=== PATIENT | female | born 1950 | race Caucasian/White ===

== ENCOUNTER 2018-08-13 13:14 | Observation (INO) ==
[2018-08-13] MEDS ORDERED: *HR* Morphine Immed Rel 15 MG TABLET PO STA (13:53)
--- NOTE | 2018-08-13 13:56 | Emergency Department Note ---
Disposition Clinical Impression: Chest pain Qualifiers: Chest pain type: unspecified Qualified Code(s): R07.9 - Chest pain, unspecified DVT (deep venous thrombosis) Qualifiers: DVT location: lower extremity Affected thrombotic vein of extremity: unspecified lower extremity distal vein Chronicity: acute Laterality: left Qualified Code(s): I82.4Z2 - Acute embolism and thrombosis of unspecified deep veins of left distal lower extremity Disposition: Admitted As Inpatient Condition: Fair Time of Disposition: 16:30 General Adult HPI - General Chief complaint: ED Chest Pain Stated complaint: CP/LLE swelling Time Seen by Provider: 08/13/18 13:28 Source: patient Mode of arrival: ambulatory Limitations: no limitations Nursing Notes Reviewed: Yes Vital Signs Reviewed: Yes - History of Present Illness HPI Narrative: 68-year-old female without significant past medical history of presenting for one day of left lower sternal any pain, swelling, tightness, chest pain or shortness of breath. Patient states that she is currently not experiencing the chest pain or shortness of breath which she believes was consistent with her previous anxiety and panic attacks, however she is still complaining of significant and severe left lower extremity pain. The lower extremity is significantly swollen in comparison to the right lower extremity. The patient denies any recent immobilization, cancer, surgeries, hemoptysis, or any other concerning findings for DVT/PE, no history of prior. Patient has no other concerns or complaints at this time. Radiation: extremity Pain Severity: severe Pain Scale: 8 Associated symptoms: Reports: chest pain, shortness of breath - Related Data Home Medications Medication Instructions Recorded Confirmed Cyanocobalamin (Vitamin B-12) 1,000 mcg IM QMONTH 01/08/16 08/13/18 [Vitamin B-12] Ferrous Sulfate [Iron] 325 mg PO TID 01/08/16 08/13/18 Furosemide [Lasix] 20 mg PO AD 01/08/16 08/13/18 Gabapentin [Neurontin] 300 mg PO AD 01/08/16 08/13/18 Tizanidine HCl [Zanaflex] 2 tab PO HS 01/08/16 08/13/18 Cymbalta 09/30/17 Diltiazem 09/30/17 Previous Rx's Medication Instructions Recorded Magnesium Oxide [Mgo] 1 tab PO DAILY #30 tablet 01/08/16 Cholecalciferol (Vitamin D3) 1 tab PO QWEEK #14 tab 02/21/16 [Dialyvite Vitamin D3 Max] Folic Acid 1 tab PO DAILY #30 tablet 02/21/16 Naproxen [EC-Naprosyn] 500 mg PO BID 10 Days #20 tablet. 09/30/17 Allergies Allergy/AdvReac Type Severity Reaction Status Date / Time Sulfa (Sulfonamide Allergy Hives Verified 08/13/18 13:22 Antibiotics) Review of Systems: *See History of Present Illness for more detail Constitutional: Denies: fever, chills Cardiovascular: Admits chest pain Respiratory: Admits dyspnea denies: Cough, hemoptysis Gastrointestinal: Denies: abdominal pain, nausea, vomiting, diarrhea, constipation, hematemesis, melena, hematochezia Genitourinary: Denies: hematuria Musculoskeletal: Admits to left lower extremity pain and swelling Denies: back pain, neck pain Neurological: Denies: headache, weakness, lightheadedness/dizziness, numbness, paresthesias, difficulty with ambulation. Endocrine: Denies: fatigue All systems ED: reviewed and negative except as stated. 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 Anterior neck is supple without swelling. *Chest: Symmetric chest wall rise *Heart: Cardiac rhythm and rate are regular with S1 and S2 , no S3 or S4 appreciated, no murmurs, gallops, rubs, or clicks. *Lungs: Lungs are clear to auscultation bilaterally, without accessory muscle use or prolonged expiratory phase. No wheezes, rhonchi or stridor appreciated. Abdomen: Abdomen is flat, soft to palpation, normal bowel sounds. No abdominal bruit auscultated. Non-distended, non-rigid, no organomegaly, no ascites appreciated. No pulsatile mass, no tenderness or guarding to palpation in all four quadrants, no rebound Extremities: Patient's left lower extremities appear swollen, there is calf tenderness to palpation, concern for DVT in the left lower STEMI. Psychiatric exam: Patient displays a normal affect and mood for the environment. No overt signs of hallucination. Integumentary: warm, dry, intact, normal color. No rash, cyanosis, diaphoresis, erythema, or pallor - General Limitations: no limitations General appearance: alert, in no apparent distress Course Course Narrative: Differential diagnosis includes but is not limited to: Pulmonary embolism, deep venous thrombosis Myocardial ischemia Evaluations. Troponin, d-dimer, EKG/old EKG, chest x-ray Treatments immediately release morphine for management of patient pain. Patient verbalizes understanding agreement this plan. - Reevaluation(s) Reevaluation #1: Patient states she is having worsening chest pain, We will order second EKG at this time. Vitals remained hemodynamically stable. Vital Signs Temperature 98 F 08/13/18 13:18 Pulse Rate 96 08/13/18 13:18 Respiratory Rate 16 08/13/18 13:18 Blood Pressure 138/80 08/13/18 13:18 O2 Sat by Pulse Oximetry 94 08/13/18 13:18 Temperature 98 F 08/13/18 13:18 Pulse Rate 85 08/13/18 16:39 Respiratory Rate 17 08/13/18 16:39 Blood Pressure 123/70 08/13/18 16:39 O2 Sat by Pulse Oximetry 99 08/13/18 16:39 Oxygen Delivery Oxygen Delivery Room Air Medical Decision Making - [facility] Narrative Medical decision making narrative: Patient elevated d-dimer, positive left peroneal DVT We will perform a CTA of the chest Patient will be admitted for first time DVT Start patient on heparin here in the ED Patient informed and verbalizes understanding and agreement with this plan. Chest X-Ray 08/13/18 13:28 IMPRESSION: No acute cardiopulmonary process. D/ / Jorge Cain MD / Jorge Cain MD Interpreting Provider: Jorge Cain MD 1448 hrs.: Chest x-ray is negative. D-dimer is elevated troponins negative. We will order a scan of her leg and her chest and then wait for the rest her labs and determine if she has any thromboembolism. She may need admission. 1532 hrs.: She does have a DVT. Were not started on heparin. Her creatinine is elevated and so we will hold off on scanning her chest; we are starting her on heparin and we will bring her into the hospital. Waiting on CBC she is in agreement with plan. 1615 hrs.: Started her on heparin patient started have some chest pain before heparin was started. Repeating an EKG. Going to hold off on CT due to her creatinine being elevated we will get a VQ scan. Her something for pain and then reassess. She has been accepted to hospitalist. We will update them also. 1628 hrs.: Patient's pain last about 10 minutes and went away without any medications, repeat EKG is negative. She is getting loaded with heparin hospitalist Has accepted and she will get VQ scan on on admission. She is in agreement with plan. I reviewed the residents documentation and agree with the residents assessment and plan of care. I have personally had face to face time with the patient. (Brief History, Brief Exam, and MDM) I personally supervised and was present for the salcido/critical portions of the following procedures completed by the resident: (add procedures performed here). EKG read and interpreted by Dr. Mick Bermudez under my supervision, I agree with his interpretation. - Lab Data Lab results reviewed: Yes I reviewed the patient's lab results. Result diagrams: 08/13/18 16:28 08/13/18 14:06 Lab Results 08/13/18 08/13/18 08/13/18 Range/Units 14:06 14:06 16:28 WBC 7.3 (4.3-11.1) K/mcL RBC 3.82 (3.82-4.97) M/mcL Hgb 10.8 L (11.5-15.4) g/dL Hct 34.9 L (35.3-44.9) % MCV 91.4 (83.0-100.0) fL MCH 28.3 (28.0-33.3) pg MCHC 30.9 L (31.6-35.5) g/dL RDW 14.6 H (11.5-14.5) % Plt Count 205 (140-400) K/mcL MPV 11.8 (9.4-12.4) fL D-Dimer 2278 H (0-500) ng/mLFEU Sodium 138 (136-145) mEq/L Potassium 4.7 (3.5-5.1) mEq/L Chloride 105 (98-107) mEq/L Carbon Dioxide 26 (23-29) mEq/L BUN 20 (8-23) mg/dL Creatinine 1.33 H (0.60-1.20) mg/dL Est GFR ( Amer) 48 L (> 60) Est GFR (Non-Af Amer) 40 L (> 60) BUN/Creatinine Ratio 15 (6-26) Glucose 78 (70-105) mg/dL Calculated Osmolality 287 (280-300) Calcium 9.2 (8.6-10.3) mg/dL Troponin I < 0.03 (< 0.04) ng/mL - Radiology Data Radiology results reviewed: Yes I reviewed the patient's radiology results. Chest X-Ray 08/13/18 13:28 IMPRESSION: No acute cardiopulmonary process. D/ / Jorge Cain MD / Jorge Cain MD Interpreting Provider: Jorge Cain MD - EKG Data EKG #1 EKG attestation: Yes I reviewed and interpreted this EKG. EKG results narrative: Patient EKG shows a sinus rhythm with a heart rate of 83 bpm, MN interval of 157 ms, QRS duration of 103 ms, QT/QTc interval of 376/440 ms respectively. There are no significant ST segment elevations, depressions, pathologic Q waves, abnormal T-wave inversions, nor any other signs of acute ischemic change. This EKG performed today is generally consistent with prior EKG performed on 04/27/2014. Patient with worsening chest pain, second EKG shows a sinus rhythm with a heart rate 72 bpm, MN interval 164 ms, QRS duration 99 ms, QT/QTc interval 413/452 ms mateusz Cruz. There is still no signs of acute ischemic change this EKG remains consistent with prior. Attestation Statement - Attestation Attestation: This documentation is done with the assistance of Dragon dictation. Despite efforts made to ensure accuracy, there may be inaccuracies in washer cutter or spelling and typographical errors. I examined this patient and my medical decision-making was reviewed with the Resident Physician. I agree with the documented findings, disposition and treatment plan as described except to the extent set forth below. Patient seen and evaluated on arrival with Dr. Pena and myself, I agree with his evaluation and management plan, supervise care the patient's stay. Patient presents today with left lower extremity pain and swelling. She has been going on for last day. She has had some shortness breath and chest pain before she arrived she said it is now gone. No history of DVT. She has no signs of cellulitis. Were going to get labs and a ultrasound of her lower extremity and then reassess. She is in agreement with plan.
[2018-08-13 14:44] LABS: Troponin I < 0.03 ng/mL (< 0.04)
[2018-08-13] MEDS ORDERED: Isovue-370 500 ML BOTTLE IVP ONE (14:46)
[2018-08-13 15:17] LABS: BUN/Creatinine Ratio 15 (6-26); Blood Urea Nitrogen 20 mg/dL (8-23); Calcium 9.2 mg/dL (8.6-10.3); Carbon Dioxide 26 mEq/L (23-29); Chloride 105 mEq/L (98-107); Glucose 78 mg/dL (70-105); Osmolality,Calculated 287 (280-300); Potassium 4.7 mEq/L (3.5-5.1); Sodium 138 mEq/L (136-145); eGFR For African Americans 48 (> 60); eGFR For Non-African Americans 40 (> 60)
[2018-08-13] MEDS ORDERED: *HR* Heparin 5,000 UNIT/ML VIAL IVP ONE (15:29)
[2018-08-13] MEDS ORDERED: *HR* Heparin 5,000 UNIT/ML VIAL IVP PRN ×2 (15:29)
[2018-08-13] MEDS ORDERED: Heparin 25,000 UNIT/250 ML D5W 25,000 UNIT/250 ML IV.SOLN IVC SCH (15:30)
[2018-08-13] MEDS ORDERED: Nitroglycerin 0.4 MG TAB.SUBL SL ONE (16:13)
[2018-08-13] MEDS ORDERED: Ondansetron 4 MG/2 ML VIAL IVP ONE (16:13)
[2018-08-13] MEDS ORDERED: *HR* FentaNYL (PF) 100 MCG/2 ML VIAL IVP ONE (16:13)
--- NOTE | 2018-08-13 16:24 | Electrocardiograph Report ---
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
[2018-08-13 16:55] LABS: Hematocrit 34.9 % (35.3-44.9); Hemoglobin 10.8 g/dL (11.5-15.4); Mean Corpuscular HGB Conc 30.9 g/dL (31.6-35.5); Mean Corpuscular Hemoglobin 28.3 pg (28.0-33.3); Mean Corpuscular Volume 91.4 fL (83.0-100.0); Mean Platelet Volume 11.8 fL (9.4-12.4); Platelet Count 205 K/mcL (140-400); Red Blood Count 3.82 M/mcL (3.82-4.97); Red Cell Distribution Width 14.6 % (11.5-14.5); White Blood Count 7.3 K/mcL (4.3-11.1)
[2018-08-13 17:04] LABS: Prothrombin Time 11.7 Seconds (9.4-12.1)
[2018-08-13 17:10] LABS: Heparin anti-factor XA UFH 1.06 IU/mL (0.30-0.70)
[2018-08-13] MEDS ORDERED: Naloxone 0.4 MG/ML INJ IVP PRN (18:04)
[2018-08-13] MEDS ORDERED: traMADol 50 MG TABLET PO PRN (18:04)
[2018-08-13] MEDS ORDERED: Acetaminophen 325 MG TABLET PO PRN (18:04)
--- NOTE | 2018-08-13 18:11 | Internal Med History&Physical ---
Date of Encounter: 08/13/18 Time of Encounter: 18:08 Internal Medicine - H&P: HPI Chief complaint: leg pain Admitted From: Home Plans for Post Hospital Care: Home History of present illness: Ms. Luke is a 68 year old female who has history of leg cramping, morbid obesity presenting emergency room for 2 days of left lower extremity swelling and the pain. Patient denies history hospitalization immobilization, developed sudden onset left lower extremity swelling and the pain 2 days ago and was 10 out of 10, constant sharp, associated with on and off chest pain shortness of breath. She denies fever or chills no abdominal pain diarrhea or constipation. In the emergency room duplex find the acute DVT of the left leg, VQ scan still pending, patient is going to be admitted for acute DVT, she started on heparin drip Past Med Surg Social Fam HX - Past Medical History Medical history: no medical history Psychiatric history: no psych history - Past Surgical History Surgical History: knee replacement Additional surgical history: back surgery - Social History Smoking Status: Never smoker Smokeless Tobacco Status: No Alcohol use: none Drug use: none Internal Medicine - H&P: Meds Cyanocobalamin (Vitamin B-12) [Vitamin B-12] 1,000 mcg IM QMONTH 01/08/16 [History] Ferrous Sulfate [Iron] 325 mg PO TID 01/08/16 [History] Furosemide [Lasix] 20 mg PO AD 01/08/16 [History] Gabapentin [Neurontin] 300 mg PO AD 01/08/16 [History] Magnesium Oxide [Mgo] 1 tab PO DAILY #30 tablet 01/08/16 [Rx] Tizanidine HCl [Zanaflex] 2 tab PO HS 01/08/16 [History] Cholecalciferol (Vitamin D3) [Dialyvite Vitamin D3 Max] 1 tab PO QWEEK #14 tab 02/21/16 [Rx] Folic Acid 1 tab PO DAILY #30 tablet 02/21/16 [Rx] Cymbalta 09/30/17 [History] Diltiazem 09/30/17 [History] Naproxen [EC-Naprosyn] 500 mg PO BID 10 Days #20 tablet. 09/30/17 [Rx] Allergy/AdvReac Type Severity Reaction Status Date / Time Sulfa (Sulfonamide Allergy Hives Verified 08/13/18 13:22 Antibiotics) All Systems PM: A 10-system review of systems was performed and is negative for pertinent findings except as documented above in the HPI. - Constitutional Vitals: Temp Pulse Resp BP Pulse Ox 98 F 85 17 123/70 99 08/13/18 13:18 08/13/18 16:39 08/13/18 16:39 08/13/18 16:39 08/13/18 16:39 General appearance: Present: A&O X 3, morbidly obese Exam: CONSTITUTIONAL: Patient appears as an age appropriate female well developed, in no acute distress. EYES Clear sclerae, bilateral pupils are equal, reactive to light and accommodation. Extraocular movements are intact RESPIRATORY: No accessory muscle use, bilateral clear to auscultation, no wheezing, no crackles/rales. CARDIOVASCULAR: Regular heart rate, normal S1 and S2, no murmurs GASTROINTESTINAL: bowel sounds present, soft, no tenderness. No hepatosplenomegaly. No bilateral CVA tenderness MUSCULOSKELETAL: Joints in normal range of motion, no clubbing, +++ edema of left leg, no cyanosis. Bilateral peripheral pulses 2+ LYMPHATIC no lymphadenopathy in neck, groin and axilla bilaterally, no thyromegaly. NEUROLOGIC: CN II to XII are grossly intact, no focal neurological deficit. Deep tendon reflexes 2+ bilaterally. Normal light touch sensation to upper and lower extremity PSYCHIATRIC: Oriented x3, with good insight, mood is euthymic. No hallucinations or delusions. SKIN: Skin warm and dry, no rashes, no open wound. Internal Med - H&P Results - Labs CBC & Chem 7: 08/13/18 16:28 08/13/18 14:06 Labs: Short CBC 08/13/18 Range/Units 16:28 WBC 7.3 (4.3-11.1) K/mcL Hgb 10.8 L (11.5-15.4) g/dL Hct 34.9 L (35.3-44.9) % Plt Count 205 (140-400) K/mcL BMP 08/13/18 14:06 Sodium 138 Potassium 4.7 Chloride 105 Carbon Dioxide 26 BUN 20 Creatinine 1.33 H Glucose 78 Calcium 9.2 Cardiac Enzymes 08/13/18 Range/Units 14:06 Troponin I < 0.03 (< 0.04) ng/mL - Impressions ITS Impressions Chest X-Ray 08/13/18 13:28 IMPRESSION: No acute cardiopulmonary process. D/ / Jorge Cain MD / Jorge Cain MD Interpreting Provider: Jorge Cain MD - Summary of Assessment and Plan Summary of Assessment and Plan: Ms. Luke is a 68 year old female who has history of leg cramping, morbid obesity presenting emergency room for 2 days of left lower extremity swelling and the pain. Patient denies history hospitalization immobilization, developed sudden onset left lower extremity swelling and the pain 2 days ago and was 10 out of 10, constant sharp, associated with on and off chest pain shortness of breath. She denies fever or chills no abdominal pain diarrhea or constipation. In the emergency room duplex find the acute DVT of the left leg, VQ scan still pending, patient is going to be admitted for acute DVT, she started on heparin drip #1 acute DVT of left lower extremity, continue heparin drip #2 on and off chest pain associated with shortness of breath, pending VQ scan, will check echocardiogram follow-up serous troponin EKG has no changes #3 acute renal failure we will hold Lasix follow-up a.m. labs #4, mor bid obesity with BMI 45 #5 leg cramping, on iron and mag replacement, neurontin #6, DVT on heparn drip - Time Spent With Patient Total time spent is greater than 50% in coordination of care (as documented) at patient's floor/unit and/or counseling patient: Greater than 35 minutes
[2018-08-13] MEDS ORDERED: Furosemide 20 MG TABLET PO SCH (18:15)
[2018-08-13] MEDS: Gabapentin 300 MG CAPSULE PO SCH ×2 (20:03→20:04)
[2018-08-13] MEDS ORDERED: tiZANidine 4 MG TABLET PO SCH (21:00)
[2018-08-13] MEDS ORDERED: Gabapentin 300 MG CAPSULE PO SCH (21:00)
[2018-08-14 01:59] LABS: Basophils % 0.6 %; Eosinophils # 0.2 K/mcL (0.0-0.6); Eosinophils % 3.1 %; Hematocrit 33.8 % (35.3-44.9); Hemoglobin 10.4 g/dL (11.5-15.4); Immature Granulocytes % 0.3 % (0-4); Lymphocytes # 1.7 K/mcL (0.6-4.6); Lymphocytes % 26.2 %; Mean Corpuscular HGB Conc 30.8 g/dL (31.6-35.5); Mean Corpuscular Hemoglobin 27.7 pg (28.0-33.3); Mean Corpuscular Volume 89.9 fL (83.0-100.0); Monocytes # 0.6 K/mcL (0.0-1.3); Monocytes % 9.6 %; Neutrophils # 3.8 K/mcL (1.6-8.9); Platelet Count 188 K/mcL (140-400); Red Blood Count 3.76 M/mcL (3.82-4.97); Red Cell Distribution Width 14.6 % (11.5-14.5); Segmented Neutrophils % 60.2 %; White Blood Count 6.4 K/mcL (4.3-11.1)
[2018-08-14 02:07] LABS: BUN/Creatinine Ratio 21 (6-26); Blood Urea Nitrogen 22 mg/dL (8-23); Calcium 8.7 mg/dL (8.6-10.3); Carbon Dioxide 26 mEq/L (23-29); Chloride 105 mEq/L (98-107); Glucose 96 mg/dL (70-105); Magnesium 2.1 mg/dL (1.6-2.6); Osmolality,Calculated 287 (280-300); Potassium 4.1 mEq/L (3.5-5.1); Sodium 137 mEq/L (136-145); eGFR For African Americans > 60 (> 60); eGFR For Non-African Americans 51 (> 60)
[2018-08-14] MEDS: Nitroglycerin 0.4 MG TAB.SUBL SL SCH (07:43)
[2018-08-14] MEDS: Gabapentin 300 MG CAPSULE PO SCH (08:48)
[2018-08-14] MEDS ORDERED: Magnesium Oxide 400 MG TABLET PO SCH (09:00)
[2018-08-14] MEDS ORDERED: Folic Acid 1 MG TABLET PO SCH (09:00)
[2018-08-14 10:14] VITALS: BP 114/60
--- NOTE | 2018-08-14 14:39 | Electrocardiograph Report ---
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
--- NOTE | 2018-08-14 14:45 | Discharge Summary ---
Orders not resulted at time of discharge: Pending orders 08/15/18 06:00 Heparin anti-factor XA UFH [COAG] Timed Date of Encounter: 08/14/18 Time of Encounter: 14:39 Hospital course: Ms. Luke is a 68 year old female who has history of leg cramping, morbid obesity presenting emergency room for 2 days of left lower extremity swelling and the pain. Patient denies history hospitalization immobilization, developed sudden onset left lower extremity swelling and the pain 2 days ago and was 10 out of 10, constant sharp, associated with on and off chest pain shortness of breath. She denies fever or chills no abdominal pain diarrhea or constipation. In the emergency room duplex find the acute DVT of the left leg, VQ scan showed very low propablity for PE, TTE showed normal EF #1 acute DVT of left lower extremity, patient is doing much better leg pain or swelling improved. We will stop IV heparin drip, discharge on ELliquis, she is going to follow-up was primary care physician. Patient is given free start kit for 1 month . #2 on and off chest pain associated with shortness of breath, VQ scan showed very low probability for PE, echocardiogram showed normal EF, negative trop and EKG. #3 acute renal failure resolved #4, mor bid obesity with BMI 45 #5 leg cramping, on iron and mag replacement, neurontin #6, DVT on heparn drip discharge on stable condition, follow up with PCP Discharge discussed with: patient Time spent discussing smoking cessation with patient: 3 to 10 minutes - Time Spent with Patient Total time spent providing and/or coordinating discharge services: Time spent: Less than 30 minutes - Discharge Medications Prescriptions: New Apixaban [Eliquis] 5 mg PO BID #30 tablet Apixaban [Eliquis] 10 mg PO BID #74 tablet Continued Magnesium Oxide [Mgo] 1 tab PO DAILY #30 tablet Tizanidine HCl [Zanaflex] 8 mg PO HS Furosemide [Lasix] 20 mg PO DAILY PRN PRN Reason: SWELLING Cyanocobalamin (Vitamin B-12) [Vitamin B-12] 1,000 mcg IM QMONTH DULoxetine [Cymbalta] 30 mg PO BID Cholecalciferol (D-3) [Vitamin D] 1,000 unit PO DAILY Gabapentin 800 mg PO TID Diltiazem [Cardizem] 30 mg PO Q48H Home Medications: Cyanocobalamin (Vitamin B-12) [Vitamin B-12] 1,000 mcg IM QMONTH 01/08/16 [History] Furosemide [Lasix] 20 mg PO DAILY PRN 01/08/16 [History] Magnesium Oxide [Mgo] 1 tab PO DAILY #30 tablet 01/08/16 [Rx] Tizanidine HCl [Zanaflex] 8 mg PO HS 01/08/16 [History] Apixaban [Eliquis] 5 mg PO BID #30 tablet 08/14/18 [Rx] Apixaban [Eliquis] 10 mg PO BID #74 tablet 08/14/18 [Rx] Cholecalciferol (D-3) [Vitamin D] 1,000 unit PO DAILY 08/14/18 [History] DULoxetine [Cymbalta] 30 mg PO BID 08/14/18 [History] Diltiazem [Cardizem] 30 mg PO Q48H 08/14/18 [History] Gabapentin 800 mg PO TID 08/14/18 [History] Allergies/Adverse Reactions: Allergy/AdvReac Type Severity Reaction Status Date / Time Sulfa (Sulfonamide Allergy Hives Verified 08/13/18 13:22 Antibiotics) Date of admission: 08/13/18 16:49 Primary care physician: PCP NONE - Constitutional Vitals: Temp Pulse Resp BP Pulse Ox 97.7 F 73 16 114/60 96 08/14/18 10:10 08/14/18 10:10 08/14/18 10:10 08/14/18 10:10 08/14/18 10:10 General appearance: Present: A&O X 3, morbidly obese Exam: CONSTITUTIONAL: Patient appears as an age appropriate female well developed, in no acute distress. EYES Clear sclerae, bilateral pupils are equal, reactive to light and accommodation. Extraocular movements are intact RESPIRATORY: No accessory muscle use, bilateral clear to auscultation, no wheezing, no crackles/rales. CARDIOVASCULAR: Regular heart rate, normal S1 and S2, no murmurs GASTROINTESTINAL: bowel sounds present, soft, no tenderness. No hepatospleno megaly. No bilateral CVA tenderness MUSCULOSKELETAL: Joints in normal range of motion, no clubbing, +++ edema of left leg, no cyanosis. Bilateral peripheral pulses 2+ LYMPHATIC no lymphadenopathy in neck, groin and axilla bilaterally, no thyromegaly. NEUROLOGIC: CN II to XII are grossly intact, no focal neurological deficit. Deep tendon reflexes 2+ bilaterally. Normal light touch sensation to upper and lower extremity PSYCHIATRIC: Oriented x3, with good insight, mood is euthymic. No hallucinations or delusions. SKIN: Skin warm and dry, no rashes, no open wound. - Patient Status Disposition: Home, Self-Care Condition: Good Functional capacity at discharge: independent ambulation Overall status at discharge: patient is back to baseline - Discharge Instructions Follow Up With: NONE,PCP [Primary Care Provider] - - Diet and Activity Diet: advance to your usual diet
[2018-08-14] MEDS ORDERED: Apixaban 5 MG TABLET PO SCH (15:00)
== END 2018-08-14 16:43 | disposition home or self-care (01) ==
LOC: EMEROOARM 13:14 → 3ANU 13:14 → SUATTDRO 16:49 → 3ANU 17:57
PROVIDERS: ADMIT Internal Medicine Nephrology; ATTEND Hospitalist